=== PATIENT | male | born 1970 | race African-American/Black ===

== ENCOUNTER → 2019-09-19 | Outpatient (CLI) | payer BC ==
[2015-12-21 23:30] VITALS: BP 154/106
[~2019-09-19] MED LIST: HYDR-1179 PO; REGADENOSON 0.4 MG/5 ML DISP.SYRIN. IV ONE
--- NOTE | 2019-09-19 14:11 | RAD ---
MR#: [id number] Date of Study: 09/19/2019 Ordering Physician: BREANNA MEJIA, Referring Physician: GORDO CHADWICK Tech: PRADIP Kraft APPROVED REPORT Test Type: Pharmacological Stress Nurse/Tech: PRADIP Kraft Test Indications: syncope, chest discomfort Cardiac History: family history Medications: see ehr Medical History: hypertension, diabetic Resting ECG: sinus rhythm Resting Heart Rate: 56 bpm Resting Blood Pressure: 142/80mmHg Pretest Chest Pain: None Nurse/Tech Notes Consent: The procedure was explained to the patient in lay terms. Informed consent was witnessed. Santiago eout was entered into [facility]. History and Stress Test performed by PRADIP Kraft Pharm. Details Pharmacologic stress testing was performed using 0.4mg per 5ml of regadenoson given intravenously ove r 7-10 seconds. POST EXERCISE Reason for Termination: Infusion complete Max HR: 93 bpm Max Blood Pressure: 148/76mmHg INTERPRETATION Stress EKG Conclusion: No acute changes were noted. Imaging Protocol IMAGE PROTOCOL: Rest Tc-99m/stress Tc-99m 1 day Rest: Stress: Viability: Radiopharm.Tc99m IpxvwaaijEf68k Sestamibi Bkap44oCn 33mCi Duration 15min. 10min. Img Date 09/19/2019 09/19/2019 Inj-Img Bves00nbv. 60min. Rest Admin Site:IV - Left AntecubitalAdministrator: PRADIP Kraft Stress Admin Site: IV - Left AntecubitalAdministrator: PRADIP Kraft STRESS DATA End Diast. Vol.108.0mlAv. Heart Rate67.0bpm End Syst. Vol.30.0mlCO Index BSA0.0L/min Myocardial Slhp510.0gEject. Zlwsfbnl17.0% Stress Rates Pk. Fill Rate3.01EDV/secLVtime Pk. Fill 147.47msec Pk. Empty Rate3.63ESV/secLVtime Pk. Rirwm202.85msec 02/10 Pk. Fill1.75EDV/sec Stress Scores Regional WT0.00Summed WT1.00 Regional WM0.00Summed WM0.00 The rest and stress images show normal perfusion, normal contraction and thickening. LV Perf. Quant 17 Seg. SSS0.00 17 Seg. SRS1.00 17 Seg. SDS0.00 Stress Defect Extent (% LAD)0.00Rest Defect Extent (% LAD)0.00Rev. Defect Extent (% LAD)0.00 Stress Defect Extent (% LCX) 0.00Rest Defect Extent (% LCX)13.80Rev. Defect Extent (% LCX)0.00 Stress Defect Extent (% RCA)0.00Rest Defect Extent (% RCA)0.00Rev. Defect Extent (% RCA)0.00 Stress Defect Extent (% KOKO)0.00Rest Defect Extent (% KOKO)2.80Rev. Defect Extent (% KOKO)0.00 Other Information Quality:Good Risk Assessment: Low Risk Conclusion 1. No evidence of EKG changes with stress testing. 2. Normal perfusion at stress/rest. 3. Low risk study. 4. EF > 60%. Signed by : Luis Alberto Hooks, Electronically Approved : 09/19/2019 14:11:18
== END | disposition home or self-care (01) ==
LOC: NM 07:37
PROVIDERS: ATTEND Internal Medicine Cardiovascular Disease
DX: R07.9 Chest pain, unspecified (principal); E11.9 Type 2 diabetes mellitus without complications; I10 Essential (primary) hypertension
CPT/HCPCS: 78452; 93017; A9500; J2785

== ENCOUNTER → 2019-09-19 | Outpatient (CLI) | payer BC ==
[2015-12-21 23:30] VITALS: BP 154/106
[~2019-09-19] MED LIST changes: -REGADENOSON 0.4 MG/5 ML DISP.SYRIN. IV ONE
--- NOTE | 2019-09-19 09:48 | CARD ---
MR#: [id number] Date of Study: 09/19/2019 Ordering Physician: BREANNA MEJIA, Referring Physician: BREANNA MEJIA, Tech: Lashell Nielsen APPROVED REPORT EXAM: Two-dimensional and M-mode echocardiogram with Doppler and color Doppler. Other Information Quality : Good INDICATION Chest Pain RISK FACTORS Hypertension Hyperlipidemia Diabetes 2D DIMENSIONS RVDd4.8 (2.9-3.5cm)Left Atrium(2D)2.9 (1.6-4.0cm) IVSd1.3 (0.7-1.1cm)Aortic Root(2D)3.5 (2.0-3.7cm) LVDd4.4 (3.9-5.9cm)LVOT Diameter2.0 (1.8-2.4cm) PWd1.2 (0.7-1.1cm)LVDs3.3 (2.5-4.0cm) FS (%) 25.5 %SV43.5 ml LVEF(%)50.4 (>50%) Aortic Valve AoV Peak Ramesh.112.0cm/sAoV VTI27.9cm AO Peak GR.4.0mmHgLVOT Peak Ramesh.99.8cm/s LVOT VTI 22.22cmAO Mean GR.3mmHg VIOLA (VMAX)2.43hz4TXK (VTI)2.44cm2 Mitral Valve MV E Npjvdfxt11.0cm/sMV E Peak Gr.2mmHg MV DECEL [id number] A Yanabgyj76.2cm/s MV E Mean Gr.1mmHgE/A Ratio1.1 Pulmonary Valve PV Peak Bbckcsiz03.5cm/sPV Peak Grad.3mmHg Tricuspid Valve TR P. Gwjoidyd099xr/sRAP QNGZZZBY5ppHr TR Peak Gr.99dhLmMWPU68rnTo Pulmonary Vein S1 Wgwiltwx76.6cm/sD2 Ohxocmsi69.8cm/s LEFT VENTRICLE The left ventricle is normal size. There is mild to moderate concentric left ventricular hypertrophy. The left ventricular systolic function is normal and the ejection fraction is within normal range. T he Ejection Fraction is 50-55%. There is normal LV segmental wall motion. The left ventricular diasto lic function and filling is normal for age. RIGHT VENTRICLE The right ventricle is normal size. There is normal right ventricular wall thickness. The right ventr icular systolic function is normal. ATRIA The left atrium size is normal. The right atrium size is normal. The interatrial septum is intact wit h no evidence for an atrial septal defect or patent foramen ovale as noted on 2-D or Doppler imaging. AORTIC VALVE The aortic valve is normal in structure and function. Doppler and Color Flow revealed no significant aortic regurgitation. There is no significant aortic valvular stenosis. MITRAL VALVE The mitral valve is normal in structure and function. There is no evidence of mitral valve prolapse. There is no mitral valve stenosis. TRICUSPID VALVE The tricuspid valve is normal in structure and function. Doppler and Color Flow revealed trace tricus pid regurgitation with an estimated PAP of 31 mmHg. There is no tricuspid valve stenosis. PULMONIC VALVE Doppler and Color Flow revealed trace pulmonic valvular regurgitation. There is no pulmonic valvular stenosis. GREAT VESSELS The aortic root is normal in size. The IVC is normal in size and collapses >50% with inspiration. PERICARDIAL EFFUSION There is no evidence of significant pericardial effusion. Critical Notification Critical Value: No <Conclusion> The left ventricular systolic function is normal and the ejection fraction is within normal range. Th e Ejection Fraction is 50-55%. There is normal LV segmental wall motion. Doppler and Color Flow revealed trace tricuspid regurgitation with an estimated PAP of 31 mmHg. Signed by : Luis Alberto Hooks, Electronically Approved : 09/19/2019 09:47:57
== END | disposition home or self-care (01) ==
LOC: ECHO 07:50
PROVIDERS: ATTEND Internal Medicine Cardiovascular Disease
DX: I51.7 Cardiomegaly (principal); R07.9 Chest pain, unspecified
CPT/HCPCS: 93306